=== PATIENT | female | born 1995 | race Hispanic/Latino ===

== ENCOUNTER 2018-12-10 17:03 | Emergency (ER) | payer OTHER ==
[2018-12-10] MEDS ORDERED: Sodium Chloride 0.9% 1,000 ML IV STA (17:37)
[2018-12-10 17:58] LABS: BASO % 0.3 % (0.0-2.0); EOS % 0.3 % (0.0-4.0); HEMOGLOBIN 16.6 g/dL (12.0-16.0); LYMPH # 1.5 K/uL (1.0-4.3); LYMPH % 9.8 % (20.0-40.0); MEAN CELL VOLUME 91.7 fl (81.0-99.0); MEAN CORPUSCULAR HEMOGLOBIN 31.2 pg (27.0-31.0); MEAN CORPUSCULAR HGB CONC 34.1 g/dL (33.0-37.0); MONO # 1.3 K/uL (0.0-0.8); MONO % 8.6 % (0.0-10.0); NEUT # 12.3 K/uL (1.8-7.0); PLATELET COUNT 267 K/uL (130-400); RBC 5.32 Mil/uL (3.80-5.20); RED CELL DISTRIBUTION WIDTH 12.4 % (11.5-14.5); WHITE BLOOD COUNT 15.2 K/uL (4.8-10.8)
[2018-12-10 18:08] LABS: PROTHROMBIN TIME 10.9 Seconds (9.8-13.1)
[2018-12-10 18:10] LABS: PARTIAL THROMBOPLASTIN TIME 33.2 Seconds (25.6-37.1)
[2018-12-10 18:13] LABS: ALB/GLOB RATIO 1.2 (1.0-2.1); ALBUMIN 5.1 g/dL (3.5-5.0); ALT/SGPT 38 U/L (9-52); AST/SGOT 41 U/L (14-36); BLOOD UREA NITROGEN 15 mg/dl (7-17); CALCIUM 10.2 mg/dL (8.4-10.2); GFR NON-AFRICAN AMERICAN > 60
--- NOTE | 2018-12-10 18:26 | ED PDOC ---
HPI: Headache Time Seen by Provider: 12/10/18 17:12 Chief Complaint (Nursing): Headache Chief Complaint (Provider): Headache History Per: Patient History/Exam Limitations: no limitations Onset/Duration Of Symptoms: Hrs Current Symptoms Are (Timing): Still Present Additional Complaint(s): 23 year old female, with a past medical history of seizure disorder on Lamictal, states around 15:00 in the afternoon, patient began having a few episodes of nonbloody and nonbilious vomiting associated with headache. Headache is nonthunderclap and non maximal on onset. She states she ate a fruit salad that may have caused her to feel unwell. Patient reports she felt she may have had a seizure and states she is feeling better now. Patient is concerned because she Googled the symptoms experienced which showed she might be experiencing Preeclampsia. PMD: none provided Past Medical History Reviewed: Historical Data, Nursing Documentation, Vital Signs Vital Signs: Last Vital Signs Temp 97.4 F L 12/10/18 17:15 Pulse 93 H 12/10/18 17:15 Resp 18 12/10/18 17:15 BP 106/77 12/10/18 17:15 Pulse Ox 100 12/10/18 17:15 - Medical History PMH: Seizures - Surgical History Surgical History: No Surg Hx - Family History Family History: States: Unknown Family Hx - Home Medications Home Medications: Ambulatory Orders Medication Instructions Recorded Ondansetron ODT [Zofran ODT] 4 mg PO Q8 PRN #12 odt 12/10/18 - Allergies Allergies/Adverse Reactions: Allergies Allergy/AdvReac Type Severity Reaction Status Date / Time Penicillins Allergy RASH Verified 12/10/18 17:15 Review of Systems Gastrointestinal: Positive for: Vomiting Neurological: Positive for: Seizures (possible seizure), Headache Physical Exam - Reviewed Nursing Documentation Reviewed: Yes Vital Signs Reviewed: Yes - Physical Exam Appears: Positive for: Non-toxic, No Acute Distress Head Exam: Positive for: ATRAUMATIC, NORMOCEPHALIC Skin: Positive for: Normal Color, Warm, Dry Eye Exam: Positive for: Normal appearance Neck: Positive for: Normal, Painless ROM Cardiovascular/Chest: Positive for: Regular Rate, Rhythm Respiratory: Positive for: Normal Breath Sounds. Negative for: Wheezing, Respiratory Distress Gastrointestinal/Abdominal: Positive for: Normal Exam, Soft. 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) - Laboratory Results Result Diagrams: 12/10/18 17:50 12/10/18 17:50 Lab Results: PT 10.9 Seconds (9.8-13.1) 12/10/18 17:50 INR 1.0 12/10/18 17:50 APTT 33.2 Seconds (25.6-37.1) 12/10/18 17:50 Total Bilirubin 0.3 mg/dl (0.2-1.3) 12/10/18 17:50 AST 41 U/L (14-36) H 12/10/18 17:50 ALT 38 U/L (9-52) 12/10/18 17:50 Alkaline Phosphatase 105 U/L (38-126) 12/10/18 17:50 Total Protein 9.3 G/DL (6.3-8.2) H 12/10/18 17:50 Albumin 5.1 g/dL (3.5-5.0) H 12/10/18 17:50 Globulin 4.2 gm/dL (2.2-3.9) H 12/10/18 17:50 Albumin/Globulin Ratio 1.2 (1.0-2.1) 12/10/18 17:50 - ECG O2 Sat by Pulse Oximetry: 100 (RA) Pulse Ox Interpretation: Normal Medical Decision Making Medical Decision Making: Initial Impression: 23 y/o female with seizure disorder presenting with vomiting and possible seizure. Initial Plan: --CMP --CBC --PTT --Prothrombin time --Lamotrigine stat --Sodium chloride 1000mL IV --Urinalysis Blood pressure is normal and patient is well appearing. Symptoms are unlikely related to preeclampsia or eclampsia. Patient states she has not been sleeping well and has been under stress with the new born baby and baby at home. This may have contributed to the stress which may have precipitated seizure today. Will check blood work, hydrate patient, and reevaluate. Scribe Attestation: Documented by Nolan Garcia acting as a scribe for Bradley Yuen MD. Provider Scribe Attestation: All medical record entries made by the Scribe were at my direction and personally dictated by me. I have reviewed the chart and agree that the record accurately reflects my personal performance of the history, physical exam, medical decision making, and the department course for this patient. I have also personally directed, reviewed, and agree with the discharge instructions and disposition. Disposition - Clinical Impression Clinical Impression: Vomiting - Patient ED Disposition Is Patient to be Admitted: No - Disposition Disposition: Routine/Home Disposition Time: 18:47 Condition: IMPROVED Prescriptions: Ondansetron ODT [Zofran ODT] 4 mg PO Q8 PRN #12 odt PRN Reason: Nausea/Vomiting Instructions: Nausea and Vomiting, Adult (DC) Forms: [facility] ([place]ovenian)
[2018-12-10 18:34] LABS: SQUAMOUS EPITHIAL < 1 /hpf (0-5); URINE BACTERIA RARE (<OCC); URINE BILIRUBIN NEGATIVE (NEGATIVE); URINE BLOOD MODERATE (NEGATIVE); URINE CLARITY SLIGHTY-CLOUDY (Clear); URINE COLOR YELLOW (YELLOW); URINE GLUCOSE (UA) NEG (NEGATIVE); URINE LEUKOCYTE ESTERASE SMALL Leu/uL (Negative); URINE PROTEIN 30 mg/dL (NEGATIVE); URINE UROBILINOGEN 0.2-1.0 mg/dL (0.2-1.0)
[2018-12-10 19:11] LABS: BANDS 3 % (0-2); EOSINOPHIL 1 % (0-7); LYMPHOCYTE 11 % (20-50); MONOCYTE 8 % (0-10); NEUTROPHIL 77 % (42-75); PLATELET ESTIMATE NORMAL (NORMAL); TOTAL CELLS COUNTED 100
[2018-12-10 19:16] VITALS: BP 116/70; PULSE 76; RESP 21; TEMP 97.6; O2SAT 98
== END 2018-12-10 19:06 | disposition home or self-care (01) ==
LOC: H.ER 17:03
DX: R11.10 Vomiting, unspecified (principal); G40.909 Epilepsy, unspecified, not intractable, without status epilepticus; Z79.899 Other long term (current) drug therapy; Z88.0 Allergy status to penicillin
CPT/HCPCS: 80053; 80175; 81003; 85025; 85610; 85730; 99284; J7030